=== PATIENT | female | born 1970 | race Caucasian/White ===

== ENCOUNTER 2017-12-02 10:59 | Observation (INO) | payer MEDICAID ==
[2017-12-02] MEDS ORDERED: LIDOCAINE 2% VISCOUS 15 ML UDCUP PO ONE (11:23)
[2017-12-02] MEDS ORDERED: HYOSCYAMINE SULFATE 0.125 MG TAB PO ONE (11:23)
[2017-12-02] MEDS ORDERED: NS 1,000 ML IV ONE (11:23)
[2017-12-02] MEDS ORDERED: fentaNYL 100 MCG/2 ML INJ IVP ONE (11:23)
[2017-12-02] MEDS ORDERED: MAG HYDROX/AL HYDROX/SIMETH 30 ML UDCUP PO ONE (11:23)
[2017-12-02] MEDS ORDERED: ONDANSETRON 4 MG/2 ML VIAL IVP ONE (11:23)
--- NOTE | 2017-12-02 11:28 | CPEKG ---
Heart Rate: 83 RR Interval: 723 P-R Interval: 148 QRSD Interval: 80 QT Interval: 360 QTC Interval: 423 P [place]: 52 QRS [place]: 4 T Wave [place]: 40 EKG Severity - BORDERLINE ECG - EKG Impression: SINUS RHYTHM EKG Impression: BORDERLINE R WAVE PROGRESSION, ANTERIOR LEADS EKG Impression: BORDERLINE T ABNORMALITIES, ANTERIOR LEADS Electronically Signed By: Amy Flores 02-Dec-2017 14:57:24
[2017-12-02 11:38] LABS: PLATELET COUNT 343 10^3/uL (150-400)
--- NOTE | 2017-12-02 11:38 | EDPHY ---
H & P Time Seen by Provider: 12/02/17 11:22 HPI/ROS: CHIEF COMPLAINT: Epigastric abdominal pain and back pain HISTORY OF PRESENT ILLNESS: 47-year-old female who reports that she has a history of reflux for which she typically takes Nexium presenting to the emergency department reporting that this morning around 5 o'clock she developed epigastric discomfort which radiated straight through to her back. Feels different from her typical heartburn as it is lower in the epigastrium, does not radiate to than base of the neck, and does radiate straight to her back. Some nausea but no vomiting. She has never had pain like this before. She feels very gassy and bloated. No chest pain or shortness of breath. No palpitations. No lightheadedness or dizziness. Can identify no clear exacerbating or relieving factors. Did take Nexium and 2 gas x tabs with no relief. No recent fevers or chills. No shortness of breath, palpitations, vomiting, or diarrhea. No urinary complaints. REVIEW OF SYSTEMS: Aside from elements discussed in the HPI, a comprehensive 10-point review of systems was reviewed and is negative. PAST MEDICAL HISTORY: GERD. Depression, anxiety, panic attacks, PTSD. No history of hypertension, hypercholesterolemia, diabetes, coronary artery disease in first-degree relatives. Patient is not postmenopausal. Father with a history of DVTs and PEs. SOCIAL HISTORY: Rare alcohol use, nonsmoker. VITAL SIGNS Reviewed by me. GENERAL: Slightly overweight, somewhat uncomfortable, reporting epigastric discomfort. No acute respiratory distress. HEENT: Atraumatic. Eyes: No icterus, no injection. Mouth: moist mucous membranes. No erythema or lesions. Neck: supple with no adenopathy. LUNGS: Clear to auscultation bilaterally, no wheezes, rhonchi or rales. CARDIAC: Regular rate and rhythm, no rubs, murmurs or gallops. ABDOMEN: Soft, tenderness in the epigastrium and right upper quadrant. No guarding or rebound. No lower quadrant tenderness. BACK: No CVA tenderness. EXTREMITIES: No trauma. No edema. Range of motion is normal throughout. NEURO: Alert and oriented, grossly nonfocal. SKIN: Warm and dry, no rash. PSYCHIATRIC: Normal mentation, no agitation. Smoking Status: Never smoked Constitutional: Initial Vital Signs Temperature (C) 36.6 C 12/02/17 11:11 Heart Rate 85 12/02/17 11:11 Respiratory Rate 18 12/02/17 11:11 Blood Pressure 158/84 H 12/02/17 11:11 O2 Sat (%) 98 12/02/17 11:11 O2 Delivery Mode Room Air Allergies/Adverse Reactions: No Known Allergies Allergy (Unverified 12/02/17 11:31) Home Medications: Medication Instructions Recorded Escitalopram Oxalate 12/02/17 Levothyroxine 12/02/17 Strattera 12/02/17 Medical Decision Making - Diagnostics EKG Interpretation: 12-LEAD EKG: Please see the full report in [facility]. My interpretation: Sinus rhythm. Nonspecific T-wave changes. Imaging Results: Imaging Impressions Abdomen Ultrasound 12/02/17 11:23 Impression: Cholelithiasis. The single large gallstone may be impacted. Results discussed with Dr. Flores at 12:32 PM. ED Course/Re-evaluation: 47-year-old female presenting with epigastric and right upper quadrant pain. She reports this pain is different from her typical reflux. IV was placed and patient received fentanyl. Laboratory evaluation is normal including lipase, LFTs, troponin, H pylori. Patient did have a right upper quadrant ultrasound. This demonstrates a single large impacted gallstone. I discussed the findings with the patient. I discussed the patient with Dr. Self. Patient has had no fever, no white count, no signs of cholecystitis on her ultrasound, however, her pain is returning and she has concerns regarding ongoing pain and nausea. As her gallstone is impacted, I do suspect that it may likely continue to cause discomfort. Patient will be admitted to [facility], Dr. Self's attending, for further evaluation and probable surgery. Patient will be transferred to [facility] via POV. Her mother is here, a sober, competent adult. Patient was offered transfer by ambulance but declined. Differential Diagnosis: Differential diagnosis for the patient's presenting complaint of abdominal pain was considered including but not limited to cholecystitis, gastritis, peptic ulcers disease, and pancreatitis. Consult/Admit Bed Type: Dr. Lopez Self, med surg - Data Points Laboratory Results: Laboratory Results 12/02/17 11:35 12/02/17 11:35 12/02/17 12/02/17 12/02/17 11:35 11:35 11:35 WBC 7.24 10^3/uL 10^3/uL (3.80-9.50) RBC 4.41 10^6/uL 10^6/uL (4.18-5.33) Hgb 14.5 g/dL g/dL (12.6-16.3) Hct 43.2 % % (38.0-47.0) MCV 98.0 fL fL (81.5-99.8) MCH 32.9 pg pg (27.9-34.1) MCHC 33.6 g/dL g/dL (32.4-36.7) RDW 13.6 % % (11.5-15.2) Plt Count 343 10^3/uL 10^3/uL (150-400) MPV 9.2 fL fL (8.7-11.7) Neut % (Auto) 67.5 % % (39.3-74.2) Lymph % (Auto) 23.5 % % (15.0-45.0) [place] % (Auto) 6.8 % % (4.5-13.0) Eos % (Auto) 1.1 % % (0.6-7.6) Baso % (Auto) 0.8 % % (0.3-1.7) Nucleat RBC Rel Count 0.0 % % (0.0-0.2) Absolute Neuts (auto) 4.89 10^3/uL 10^3/uL (1.70-6.50) Absolute Lymphs (auto) 1.70 10^3/uL 10^3/uL (1.00-3.00) Absolute Monos (auto) 0.49 10^3/uL 10^3/uL (0.30-0.80) Absolute Eos (auto) 0.08 10^3/uL 10^3/uL (0.03-0.40) Absolute Basos (auto) 0.06 10^3/uL 10^3/uL (0.02-0.10) Absolute Nucleated RBC 0.00 10^3/uL 10^3/uL (0-0.01) Immature Gran % 0.3 % % (0.0-1.1) Immature Gran # 0.02 10^3/uL 10^3/uL (0.00-0.10) Sodium 141 mEq/L mEq/L (135-145) Potassium 4.4 mEq/L mEq/L (3.5-5.2) Chloride 105 mEq/L mEq/L (97-110) Carbon Dioxide 26 mEq/l mEq/l (22-31) Anion Gap 10 mEq/L mEq/L (8-16) BUN 15 mg/dL mg/dL (7-23) Creatinine 0.9 mg/dL mg/dL (0.6-1.0) Estimated GFR > 60 Glucose 90 mg/dL mg/dL (70-100) Calcium 9.5 mg/dL mg/dL (8.5-10.4) Total Bilirubin 0.6 mg/dL mg/dL (0.1-1.4) Conjugated Bilirubin 0.3 mg/dL mg/dL (0.0-0.5) Unconjugated Bilirubin 0.3 mg/dL mg/dL (0.0-1.1) AST 16 IU/L IU/L (14-46) ALT 28 IU/L IU/L (9-52) Alkaline Phosphatase 83 IU/L IU/L (38-126) Troponin I < 0.012 ng/mL ng/mL (0.000-0.034) Total Protein 7.1 g/dL g/dL (6.3-8.2) Albumin 3.9 g/dL g/dL (3.5-5.0) Lipase 153 IU/L IU/L (23-300) TSH 4.100 uIU/mL uIU/mL (0.465-4.680) H. pylori IgG Antibody NEGATIVE (NEG) Medications Given: Discontinued Medications Al Hydroxide/Mg Hydroxide (Maalox Susp) 30 ml PO ONCE ONE Stop: 12/02/17 11:24 Last Admin: 12/02/17 11:32 Dose: 30 ml Fentanyl (Sublimaze) 75 mcg IVP EDNOW ONE Stop: 12/02/17 11:24 Last Admin: 12/02/17 11:34 Dose: 75 mcg Hydromorphone HCl (Dilaudid) 1 mg IVP EDNOW ONE Stop: 12/02/17 13:05 Last Admin: 12/02/17 13:11 Dose: 1 mg Hyoscyamine Sulfate (Levsin, Hyomax-Sl) 0.25 mg PO ONCE ONE Stop: 12/02/17 11:24 Last Admin: 12/02/17 11:33 Dose: 0.25 mg Sodium Chloride (Ns) 1,000 mls @ 0 mls/hr IV EDNOW ONE; Wide Open PRN Reason: Protocol Stop: 12/02/17 11:24 Last Admin: 12/02/17 11:32 Dose: 1,000 mls Lidocaine (Lidocaine 2% Viscous) 15 ml PO ONCE ONE Stop: 12/02/17 11:24 Last Admin: 12/02/17 11:32 Dose: 15 ml Ondansetron HCl (Zofran) 4 mg IVP EDNOW ONE Stop: 12/02/17 11:24 Last Admin: 12/02/17 11:34 Dose: Not Given Departure - Departure Disposition: [facility] Inpatient Acute Clinical Impression: Abdominal pain Qualifiers: Abdominal location: right upper quadrant Qualified Code(s): R10.11 - Right upper quadrant pain Cholelithiasis Qualifiers: Cholelithiasis location: gallbladder Cholecystitis presence: without cholecystitis Biliary obstruction: with biliary obstruction Qualified Code(s): K80.21 - Calculus of gallbladder without cholecystitis with obstruction Condition: Fair
[2017-12-02] MEDS ORDERED: HYDROmorphONE/DILAUDID 2 MG/ML INJ IVP ONE (13:04)
--- NOTE | 2017-12-02 16:19 | PDGENHP ---
History and Physical - Chief Complaint ruq pain - History of Present Illness 1 day ruq pain, unrelenting. ultrasound shows 18mm stone likely impacted in neck of gb History Information - Allergies/Home Medication List Allergies/Adverse Reactions: No Known Allergies Allergy (Unverified 12/02/17 11:31) Home Medications: Escitalopram Oxalate 12/02/17 [Last Taken Unknown] Levothyroxine 12/02/17 [Last Taken Unknown] Strattera 12/02/17 [Last Taken Unknown] I have personally reviewed and updated: family history, medical history, surgical history - Past Medical History Additional medical history: depression, anxiety - Surgical History Reports: no pertinent surgical hx - Social History Smoking Status: Never smoked Tobacco Use: Other Alcohol Use: None (non smoker) Review of Systems Review of Systems: Neurological: Reports: anxiety, depressed Physical Exam Physical Exam: heent wnl lungs clear heart nml s1s2 no m abd tender ruq , positive Cook's sign ext neuro wnl Temp Pulse Resp BP Pulse Ox 37.2 C 90 18 152/66 H 92 12/02/17 13:39 12/02/17 13:44 12/02/17 13:44 12/02/17 13:44 12/02/17 13:44 Lab Data & Imaging Review 12/02/17 11:35 12/02/17 11:35 WBC 7.24 10^3/uL (3.80-9.50) 12/02/17 11:35 RBC 4.41 10^6/uL (4.18-5.33) 12/02/17 11:35 Hgb 14.5 g/dL (12.6-16.3) 12/02/17 11:35 Hct 43.2 % (38.0-47.0) 12/02/17 11:35 MCV 98.0 fL (81.5-99.8) 12/02/17 11:35 MCH 32.9 pg (27.9-34.1) 12/02/17 11:35 MCHC 33.6 g/dL (32.4-36.7) 12/02/17 11:35 RDW 13.6 % (11.5-15.2) 12/02/17 11:35 Plt Count 343 10^3/uL (150-400) 12/02/17 11:35 MPV 9.2 fL (8.7-11.7) 12/02/17 11:35 Neut % (Auto) 67.5 % (39.3-74.2) 12/02/17 11:35 Lymph % (Auto) 23.5 % (15.0-45.0) 12/02/17 11:35 Carbon % (Auto) 6.8 % (4.5-13.0) 12/02/17 11:35 Eos % (Auto) 1.1 % (0.6-7.6) 12/02/17 11:35 Baso % (Auto) 0.8 % (0.3-1.7) 12/02/17 11:35 Nucleat RBC Rel Count 0.0 % (0.0-0.2) 12/02/17 11:35 Absolute Neuts (auto) 4.89 10^3/uL (1.70-6.50) 12/02/17 11:35 Absolute Lymphs (auto) 1.70 10^3/uL (1.00-3.00) 12/02/17 11:35 Absolute Monos (auto) 0.49 10^3/uL (0.30-0.80) 12/02/17 11:35 Absolute Eos (auto) 0.08 10^3/uL (0.03-0.40) 12/02/17 11:35 Absolute Basos (auto) 0.06 10^3/uL (0.02-0.10) 12/02/17 11:35 Absolute Nucleated RBC 0.00 10^3/uL (0-0.01) 12/02/17 11:35 Immature Gran % 0.3 % (0.0-1.1) 12/02/17 11:35 Immature Gran # 0.02 10^3/uL (0.00-0.10) 12/02/17 11:35 Sodium 141 mEq/L (135-145) 12/02/17 11:35 Potassium 4.4 mEq/L (3.5-5.2) 12/02/17 11:35 Chloride 105 mEq/L (97-110) 12/02/17 11:35 Carbon Dioxide 26 mEq/l (22-31) 12/02/17 11:35 Anion Gap 10 mEq/L (8-16) 12/02/17 11:35 BUN 15 mg/dL (7-23) 12/02/17 11:35 Creatinine 0.9 mg/dL (0.6-1.0) 12/02/17 11:35 Estimated GFR > 60 12/02/17 11:35 Glucose 90 mg/dL (70-100) 12/02/17 11:35 Calcium 9.5 mg/dL (8.5-10.4) 12/02/17 11:35 Total Bilirubin 0.6 mg/dL (0.1-1.4) 12/02/17 11:35 Conjugated Bilirubin 0.3 mg/dL (0.0-0.5) 12/02/17 11:35 Unconjugated Bilirubin 0.3 mg/dL (0.0-1.1) 12/02/17 11:35 AST 16 IU/L (14-46) 12/02/17 11:35 ALT 28 IU/L (9-52) 12/02/17 11:35 Alkaline Phosphatase 83 IU/L (38-126) 12/02/17 11:35 Troponin I < 0.012 ng/mL (0.000-0.034) 12/02/17 11:35 Total Protein 7.1 g/dL (6.3-8.2) 12/02/17 11:35 Albumin 3.9 g/dL (3.5-5.0) 12/02/17 11:35 Lipase 153 IU/L (23-300) 12/02/17 11:35 TSH 4.100 uIU/mL (0.465-4.680) 12/02/17 11:35 H. pylori IgG Antibody NEGATIVE (NEG) 12/02/17 11:35 Assessment & Plan Assessment: Abdominal pain (Acute) Cholelithiasis (Acute) Plan: cholecystectomy tonight. risks and benefits explained to pt and her mother
[2017-12-02] MEDS ORDERED: ceFAZolin 2 GM/SWFI 2 GM/20 ML SYR IVP ONE (16:25)
[2017-12-02] MEDS ORDERED: ONDANSETRON 4 MG/2 ML VIAL IVP PRN ×2 (16:26→20:14)
[2017-12-02] MEDS ORDERED: LR 1,000 ML IV SCH ×2 (16:30→19:30)
[2017-12-02] MEDS ORDERED: LR 1,000 ML IV ONE (16:58)
[2017-12-02] MEDS ORDERED: BUPIVACAINE 0.5% 10 ML SDV ONE (17:28)
--- NOTE | 2017-12-02 17:28 | PDANEPAE ---
ANE History of Present Illness 47 year old female for lap austyn and umbilical hernia repair. ANE Past Medical History - Cardiovascular History Hx Hypertension: No Hx Arrhythmias: No Hx Chest Pain: No Hx Coronary Artery / Peripheral Vascular Disease: No Hx CHF / Valvular Disease: No Hx Palpitations: No - Pulmonary History Hx COPD: No Hx Asthma/Reactive Airway Disease: No Hx Recent Upper Respiratory Infection: No Hx Oxygen in Use at Home: No Hx Sleep Apnea: No Sleep Apnea Screening Result - Last Documented: Negative - Endocrine History Hx Diabetes: No Hypothyroid: Yes Hyperthyroid: No Obesity: mild - Renal History Hx Renal Disorders: No - Liver History Hx Hepatic Disorders: No - Neurological & Psychiatric Hx Neurological / Psychiatric History Comment: Migraine headaches - Cancer History Hx Cancer: No - GI History GERD: moderate - Chronic Pain History Chronic Pain: No ANE Review of Systems Review of systems is: negative Review of Systems: - Exercise capacity Exercise capacity: >=4 METS ANE Patient History - Allergies Allergies/Adverse Reactions: No Known Allergies Allergy (Unverified 12/02/17 11:31) - Home Medications Home medications: home medication list seen and reviewed Home Medications: Atomoxetine HCl [Strattera] 75 mg PO DAILY 12/02/17 [Last Taken 12/02/17] Cholecalciferol Vit D3 [Vitamin D3 (*)] 3,000 units PO DAILY 12/02/17 [Last Taken Unknown] Escitalopram Oxalate [Lexapro] 10 mg PO DAILY 12/02/17 [Last Taken 12/01/17] Esomeprazole Mag Trihydrate [Nexium] 40 mg PO DAILY 12/02/17 [Last Taken ] Ferrous Sulfate [Ferrous Sulf 325 MG (*)] 325 mg PO DAILY 12/02/17 [Last Taken 12/02/17] Levothyroxine [Synthroid 88 mcg (*)] 88 mcg PO DAILY06 12/02/17 [Last Taken ] - NPO status NPO Status: no food or drink >8 hours NPO Since - Liquids (Date): 12/02/17 NPO Since - Liquids (Time): 07:00 NPO Since - Solids (Date): 12/02/17 NPO Since - Solids (Time): 07:00 - Anes Hx Hx Anesthesia Complications (with details): No prior anesthetics - Smoking Hx Smoking Status: Never smoked - Alcohol Use Alcohol Use: None (non smoker) - Family Anes Hx Family Anes Hx: neg - N/A ANE Labs/Vital Signs - Labs Result Diagrams: 12/02/17 11:35 12/02/17 11:35 - Vital Signs Vital Signs: reviewed preoperatively; see RN documention for details Blood Pressure: 152/66 Heart Rate: 90 Respiratory Rate: 18 O2 Sat (%): 92 Weight: 81.647 kg ANE Physical Exam - Airway Neck exam: FROM Mallampati Score: Class 2 Mouth exam: normal dental/mouth exam - Pulmonary Pulmonary: no respiratory distress - Cardiovascular Cardiovascular: regular rate and rhythym - ASA Status ASA Status: II ANE Anesthesia Plan Anesthesia Plan: general endotracheal anesthesia Total IV Anesthesia: No
[2017-12-02] MEDS ORDERED: MIDAZOLAM 2 MG/2 ML VIAL IVP ONE (17:29)
[2017-12-02] MEDS ORDERED: BUPIVACAINE/EPI 0.5% 30 ML SDV ONE (17:33)
[2017-12-02] MEDS ORDERED: fentaNYL 100 MCG/2 ML INJ ONE ×2 (17:57→20:29)
[2017-12-02] MEDS ORDERED: PROPOFOL 200 MG/20 ML VIAL ONE (17:57)
[2017-12-02] MEDS ORDERED: LIDOCAINE 2% 5 ML SDV ONE (17:58)
[2017-12-02] MEDS ORDERED: ROCURONIUM 50 MG/5 ML VIAL ONE (17:59)
[2017-12-02] MEDS ORDERED: HYDROCODONE/APAP 5/325 TAB PO PRN ×2 (19:06→20:14)
--- NOTE | 2017-12-02 19:28 | GOP ---
[f rep st] OPERATIVE REPORT DATE OF OPERATION: 12/02/2017 SURGEON: Lopez Self MD PREOPERATIVE DIAGNOSIS: Cholelithiasis, biliary colic, umbilical hernia. POSTOPERATIVE DIAGNOSIS: Cholelithiasis, biliary colic, umbilical hernia. PROCEDURE PERFORMED: Laparoscopic cholecystectomy, umbilical hernia repair. FINDINGS: INDICATIONS: A 47-year-old female with unrelenting right upper quadrant pain. Ultrasound documented cholelithiasis. She also had an umbilical hernia. DESCRIPTION OF PROCEDURE: A curved incision was made below the umbilicus after a sterile prep and dr douglas. The umbilical hernia sac was identified and excised. A Veress needle used to achieve pneumoper itoneum and then a 12 mm trocar placed. Two 5 mm ports were placed in the upper abdomen. The gallbl adder was pushed cephalad. Careful dissection of the triangle of Calot revealed the cystic duct. Th e artery was identified and cauterized, as it was quite small. The gallbladder was then removed by c lipping the cystic duct and cutting it, and then removing the gallbladder with cautery. It was place d in an Endopouch and extracted. The liver bed was very dry. All gas and fluid were vented from the right upper quadrant. The umbilical hernia was closed with multiple interrupted 0 Nurolon sutures. Marcaine was infiltrated around the fascia and the skin closed with absorbable sutures. The patient tolerated the procedure well. /[id number]/MODL
--- NOTE | 2017-12-02 19:32 | GDS ---
[f rep st] DISCHARGE SUMMARY PRESENT ILLNESS: The patient was admitted with cholelithiasis, an incidental umbilical hernia was no chacorta. She underwent cholecystectomy, umbilical hernia repair. Uneventful recovery. DISPOSITION: Home. FOLLOWUP: With Dr. Self within a week. /[id number]/MODL
--- NOTE | 2017-12-02 20:04 | POSTANESTH ---
Post Anesthetic Evaluation Cardiovascular Status: Normal, Stable, Similar to Pre-Op Cond Respiratory Status: Normal, Stable, Similar to Pre-op Cond. Level of Consciousness/Mental Status: Alert and Oriented, Mildly Sleepy, Arousable Pain Control: Adequate, Prn Tx Ordered Nausea/Vomiting Control: Adequate, Prn Tx Ordered Complications Possibly Related to Anesthesia: None Noted
[2017-12-02] MEDS ORDERED: NALOXONE HCL 0.4 MG/ML INJ IVP PRN (20:14)
[2017-12-02] MEDS ORDERED: PHENYLEPHRINE HCL 100 MCG/ML SYR IVP PRN (20:14)
[2017-12-02] MEDS ORDERED: LR 500 ML IV PRN (20:14)
[2017-12-02] MEDS: fentaNYL 100 MCG/2 ML INJ IVP PRN ×2 (20:30→20:38)
[2017-12-03 04:41] VITALS: RESP 17; O2SAT 95
[2017-12-03 09:15] VITALS: BP 119/78; PULSE 85; TEMP 98.2
== END 2017-12-03 12:09 | disposition home or self-care (01) ==
LOC: CED 10:59 → CEDHOLD 13:04 → F1N 14:54
PROVIDERS: ADMIT Surgery; ATTEND Surgery
PROC: 0FT44ZZ Resection of Gallbladder, Percutaneous Endoscopic Approach (ICD-10-PCS; principal; 2017-12-02 19:00)
PROC: 0WQF0ZZ Repair Abdominal Wall, Open Approach (ICD-10-PCS; principal; 2017-12-02 19:00)
DX: K80.10 Calculus of gallbladder with chronic cholecystitis without obstruction (principal); K42.9 Umbilical hernia without obstruction or gangrene; E03.9 Hypothyroidism, unspecified
CPT/HCPCS: 47562; 49585; 76705; 93005; G0378; 80048-PO; 80076-PO; 83690-PO; 84443-PO; 84484-PO; 85025-PO; 86677-PO; 96374; J0690; J1170; J2405; J2704; J3010